=== PATIENT | female | born 1990 | race African-American/Black ===

== ENCOUNTER 2023-07-10 04:40 | Day surgery (SDC) | payer OTHER ==
[2023-07-03 13:43] VITALS: BMI 20.9
[2023-07-10] MEDS ORDERED: MIDAZOLAM HCL 2 MG/2 ML SINGLE DOSE VIAL ONE (09:54)
[2023-07-10] MEDS ORDERED: PROPOFOL 20 ML ONE (09:54)
[2023-07-10] MEDS: ceFAZolin SODIUM 1 GM VIAL IVPB ONE (10:55)
[2023-07-10] MEDS ORDERED: ONDANSETRON 4 MG/2 ML VIAL IVPUSH PRN (11:31)
[2023-07-10] MEDS: ACETAMINOPHEN 1000 MG/100 ML BAG IVPB ONE (11:48)
[2023-07-10] MEDS: LACTATED RINGERS SOLUTION 1,000 ML IV SCH (12:37)
[2023-07-10 13:13] VITALS: RESP 20
[2023-07-10 14:19] VITALS: BP 99/64; PULSE 81; TEMP 97.7
== END 2023-07-10 15:20 | disposition home or self-care (01) ==
LOC: JASU-SURG 04:40
PROVIDERS: ATTEND Obstetrics & Gynecology
PROC: 0UB98ZZ Excision of Uterus, Via Natural or Artificial Opening Endoscopic (ICD-10-PCS; principal; 2023-07-10 10:00)
DX: N92.0 Excessive and frequent menstruation with regular cycle (principal); N84.0 Polyp of corpus uteri
CPT/HCPCS: 81025; 86850; 86900; 86901; 88305-TC; 94760; J0131